=== PATIENT | male | born 2000 | race Caucasian/White ===

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

== ENCOUNTER 2022-01-20 21:15 | Emergency (ER) | payer OTHER ==
--- OUTSIDE RECORDS SUMMARY | 2022-01-20 21:18 | XMS REPORT | Continuity of Care Document ---
:[address] [facility] t Address 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 Medications Ordered Filled Start Stop Current Ordering Indication Dosage Frequency Signature Comments Components Source Medication Medication Date Date Medication? Clinician (SIG) Name Name Nystatin Nystatin 2019- Yes Triny Bedias 1 Common 01-03 applicatio Spirit 00:00: n to - [facility] 00 affected [facility] Tretinoin Tretinoin Yes Triny Bedias 1 Common 12-26 applicatio [facility] 00:00: n to - [facility] 00 affected [facility] evening to Center face Clindamycin Clindamycin 2019- No Triny Roma 1 Common Phos-Benzoy Phos-Benzoy 12-25 applicatio Spirit l Perox l Perox 00:00: 00:00 n to - [facility] 00 :00 affected [facility] Procedures This patient has no known procedures. Encounters Start End Encounter Admission Attending Care Care Encounter Source Date/Time Date/Time Type Type Clinicians Facility Department ID 2019-02-26 2019-02-26 Outpatient Fercho Bonilla [id number] Common 08:58:00 08:58:00 [facility] [address] Road [facility] 2019-02-14 2019-02-14 Outpatient Fercho Bonilla [id number] Common 12:24:00 12:24:[address] [facility] 2019-02-14 2019-02-14 [facility] [id number] Common 11:55:00 11:55:[address] [facility] 2019-01-05 2019-01-05 [facility] [id number] Common 15:38:00 15:38:[address] [facility] 2019-01-04 2019-01-04 [facility] [id number] Common 12:58:00 12:58:[address] [facility] [address] [facility] 2019-01-03 2019-01-03 [facility] [id number] Common 14:00:00 14:00:[address] [facility] 2018-12-26 2018-12-26 [facility] [id number] Common 13:46:00 13:46:00 t [facility] [address] [facility] 2018-12-25 2018-12-25 [facility] [id number] Common 13:20:00 13:20:[address] [facility] Results This patient has no known results.
[2022-01-20] MEDS ORDERED: CEFAZOLIN SODIUM 1 GM/VIAL ONE (21:53)
[2022-01-20] MEDS ORDERED: AMOX/K CLAV 875 MG TAB ONE (21:54)
[2022-01-20] MEDS ORDERED: NA CHLORIDE 0.9% 500 ML ONE (21:54)
[2022-01-20] MEDS ORDERED: KETOROLAC 30 MG/ML INJ ONE (21:54)
[2022-01-20] MEDS ORDERED: NA CHLORIDE 0.9% 50 ML ONE (21:56)
[2022-01-20] MEDS ORDERED: TETANUS & DIPHTHERIA TOX,ADULT 0.5 ML VIAL ONE (21:57)
[2022-01-20] MEDS ORDERED: LIDOCAINE 1% W/EPI 1:100,000 MDV 50 ML VIAL ONE (22:26)
--- NOTE | 2022-01-20 22:34 | RAD REPORT ---
EXAM DESCRIPTION: RAD - Forearm Right - 01/20/2022 10:01 pm CLINICAL HISTORY: PAIN, dog bite COMPARISON: <Comparisons> FINDINGS: No fracture is identified. There is no dislocation or periosteal reaction noted. Soft tissue wound is present distal forearm and wrist area. No foreign body in the soft tissues. IMPRESSION: Soft tissue wound from dog bite. No foreign body. No bone abnormality.
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
--- NOTE | 2022-01-20 22:47 | EDPHYS ---
Physician Documentation [facility] Name: Damion Rod II Age: 21 yrs Sex: Male : 2000 Arrival Date: 01/20/2022 Time: 21:25 Bed 12 Private MD: ED Physician Roberto Trujillo HPI: 01/20 21:33 This 21 yrs old Male presents to ER via EMS with complaints of dog bite right maida wrist. 21:33 The patient or guardian reports a bite, by a dog. The complaints affect the right wrist maida diffusely. Context: The problem was sustained at home. Onset: The symptoms/episode began/occurred just prior to arrival. Modifying factors: The symptoms are alleviated by nothing, elevation, holding still, the symptoms are aggravated by movement, dependent position. Associated signs and symptoms: The patient has no apparent associated signs or symptoms. The patient has not experienced similar symptoms in the past. Historical: - Allergies: 21:28 No Known Allergies; eh3 - Home Meds: 21:28 None [Active]; eh3 - PMHx: 21:28 right bundle branch block; eh3 - PSHx: 21:28 Unable to Obtain; eh3 - Immunization history:: Adult Immunizations unknown. - Social history:: Smoking status: Patient denies any tobacco usage or history of. Patient uses street drugs, marijuana, Patient/guardian denies using alcohol. - Family history:: not pertinent. ROS: 21:33 Constitutional: Negative for fever, chills, and weight loss, Eyes: Negative for injury, maida pain, redness, and discharge, ENT: Negative for injury, pain, and discharge, Neck: Negative for injury, pain, and swelling, Cardiovascular: Negative for chest pain, palpitations, and edema, Respiratory: Negative for shortness of breath, cough, wheezing, and pleuritic chest pain, Abdomen/GI: Negative for abdominal pain, nausea, vomiting, diarrhea, and constipation, Back: Negative for injury and pain, : Negative for injury, bleeding, discharge, and swelling, Skin: Negative for injury, rash, and discoloration, Neuro: Negative for headache, weakness, numbness, tingling, and seizure, Psych: Negative for depression, anxiety, suicide ideation, homicidal ideation, and hallucinations, Allergy/Immunology: Negative for hives, rash, and allergies, Endocrine: Negative for neck swelling, polydipsia, polyuria, polyphagia, and marked weight changes, Hematologic/Lymphatic: Negative for swollen nodes, abnormal bleeding, and unusual bruising. 21:33 MS/extremity: Positive for decreased range of motion, laceration, pain, swelling, tenderness. 21:33 Skin: Positive for erythema, hematoma. Exam: 21:33 Constitutional: This is a well developed, well nourished patient who is awake, alert, maida and in no acute distress. Head/Face: Normocephalic, atraumatic. Eyes: Pupils equal round and reactive to light, extra-ocular motions intact. Lids and lashes normal. Conjunctiva and sclera are non-icteric and not injected. Cornea within normal limits. Periorbital areas with no swelling, redness, or edema. ENT: Nares patent. No nasal discharge, no septal abnormalities noted. Tympanic membranes are normal and external auditory canals are clear. Oropharynx with no redness, swelling, or masses, exudates, or evidence of obstruction, uvula midline. Mucous membranes moist. Neck: Trachea midline, no thyromegaly or masses palpated, and no cervical lymphadenopathy. Supple, full range of motion without nuchal rigidity, or vertebral point tenderness. No Meningismus. Chest/axilla: Normal chest wall appearance and motion. Nontender with no deformity. No lesions are appreciated. Cardiovascular: Regular rate and rhythm with a normal S1 and S2. No gallops, murmurs, or rubs. Normal PMI, no JVD. No pulse deficits. Respiratory: Lungs have equal breath sounds bilaterally, clear to auscultation and percussion. No rales, rhonchi or wheezes noted. No increased work of breathing, no retractions or nasal flaring. Abdomen/GI: Soft, non-tender, with normal bowel sounds. No distension or tympany. No guarding or rebound. No evidence of tenderness throughout. Back: No spinal tenderness. No costovertebral tenderness. Full range of motion. Male : Normal genitalia with no discharge or lesions. Skin: Warm, dry with normal turgor. Normal color with no rashes, no lesions, and no evidence of cellulitis. Neuro: Awake and alert, GCS 15, oriented to person, place, time, and situation. Cranial nerves II-XII grossly intact. Motor strength 5/5 in all extremities. Sensory grossly intact. Cerebellar exam normal. Normal gait. Psych: Awake, alert, with orientation to person, place and time. Behavior, mood, and affect are within normal limits. 21:33 Musculoskeletal/extremity: ROM: limited active range of motion due to pain, limited passive range of motion due to pain, in the right wrist, palmar aspect of right forearm and right forearm, Circulation is intact in all extremities. Sensation intact. Severe pain noted. Compartment Syndrome exam of affected extremity: is normal. DVT Exam: negative Homans' sign noted on exam, no appreciated bluish discoloration, no erythema, no increased warmth, pain, swelling, tenderness. Vital Signs: 21:26 BP 124 / 87; Pulse 82; Resp 18; Pulse Ox 100% on R/A; Weight 70.31 kg; Height 6 ft. 0 eh3 in. (182.88 cm); Pain 8/10; 22:32 BP 124 / 87; Pulse 82; Resp 18; Pulse Ox 100% on R/A; Pain 5/10; eh3 23:04 BP 121 / 82; Pulse 84; Resp 18; Pulse Ox 100% on R/A; Pain 5/10; ld1 21:26 Body Mass Index 21.02 (70.31 kg, 182.88 cm) eh3 Laceration: 21:37 Wound Repair of 5.5cm ( 2.2in ) subcutaneous laceration to right wrist and dorsal maida aspect of right forearm. Irregularly shaped.. Skin/tissue flap noted.. Distal neuro/vascular/tendon intact. Anesthesia: Local anesthetic administered with 10 mls of 1% lidocaine w/ Epi. Wound prep: Simple cleansing by me, Copious irrigation. Skin closed with 6 5-0 Prolene using interrupted sutures and sterile technique. Dressed with Neosporin, pressure dressing, non-adherent dressing. Patient tolerated well. MDM: 21:27 Patient medically screened. maida 21:36 Differential diagnosis: open fracture, contusion, tendonitis. Data reviewed: vital maida signs, nurses notes, radiologic studies, plain films. Data interpreted: media monitor: rate is 82 beats/min, rhythm is regular, Pulse oximetry: on room air is 100 %. Test interpretation: by ED physician or midlevel provider: plain radiologic studies. Counseling: I had a detailed discussion with the patient and/or guardian regarding: the historical points, exam findings, and any diagnostic results supporting the discharge/admit diagnosis, radiology results, the need for outpatient follow up, for definitive care, a general surgeon, a hand specialist. 01/20 21:32 Order name: Forearm Right XRAY; Complete Time: 22:39 [facility] 01/20 21:32 Order name: Dressing - Wound; Complete Time: 22:32 [facility] 01/20 21:32 Order name: Gloves, Sterile; Complete Time: 22:32 [facility] 01/20 21:32 Order name: Prolene, Sutures; Complete Time: 22:32 [facility] 01/20 21:32 Order name: Setup Suture Tray; Complete Time: 22:32 [facility] 01/20 22:46 Order name: Sling; Complete Time: 23:24 [facility] Administered Medications: 22:17 Drug: Tetanus Toxoid,Adsorbed 0.5 ml {[employer] Technician: [employer]. Exp: 10/17/2023. Lot eh3 #: [id number]. } Route: IM; Site: left deltoid; 22:31 Follow up: Response: No adverse reaction 3 22:17 Drug: NS 0.9% 500 ml Route: IV; Rate: bolus; Site: left antecubital; 3 23:15 Follow up: Response: No adverse reaction; IV Status: Completed infusion; IV Intake: ld1 500ml 22:19 Drug: Ancef (cefazolin) 1 grams Route: IVPB; Site: left antecubital; 3 22:31 Follow up: Response: No adverse reaction; IV Status: Completed infusion; IV Intake: [id number] 22:19 Drug: Augmentin (Amoxicillin-Clavulanate) 875 mg Route: PO; 3 22:31 Follow up: Response: No adverse reaction 3 22:19 Drug: Ketorolac 30 mg Route: IVP; Site: left antecubital; 3 22:31 Follow up: Response: Marked relief of symptoms 3 22:50 Drug: Lidocaine-Epinephrine -1%: (1:100,000) 10 ml {Note: administered by Roberto Trujillo MD.} Volume: 20 ml; Route: Infiltration; 23:15 Follow up: Response: No adverse reaction ld1 23:03 Drug: morphine 2 mg Route: IVP; Infused Over: 4 mins; Site: left antecubital; ld1 23:15 Follow up: Response: No adverse reaction; Marked relief of symptoms ld1 23:03 Drug: Zofran (Ondansetron) 4 mg Route: IVP; Site: left antecubital; ld1 23:15 Follow up: Response: No adverse reaction ld1 Disposition Summary: 01/20/22 22:46 Discharge Ordered Location: Home maida Problem: new maida Symptoms: have improved maida Condition: Stable maida Diagnosis - Bitten by dog maida - Laceration without foreign body of right wrist - 4 lacerations maida Followup: maida - With: Private Physician - When: 2 - 3 days - Reason: Recheck today's complaints, Continuance of care, Re-evaluation by your physician Followup: maida - With: - When: 2 - 3 days - Reason: Recheck today's complaints, Re-evaluation by your physician Followup: maida - With: - When: 2 - 3 days - Reason: Recheck today's complaints, Continuance of care, Re-evaluation by your physician Discharge Instructions: - Discharge Summary Sheet maiad - Animal Bite, Adult, [id number] maida - Laceration Care, Adult maida - Laceration Care, Adult, [id number] maida - Animal Bite, Adult maida Forms: - Medication Reconciliation Form [facility] - Thank You Letter [facility] - Antibiotic Education [facility] - Prescription Opioid Use [facility] Prescriptions: - Centany 2 % Topical ointment - apply 1 application by TOPICAL route 3 times per day; 30 gram; Refills: 0, [facility] Product Selection Permitted - Augmentin 875-125 mg Oral Tablet - take 1 tablet by ORAL route every 12 hours for 10 days; 20 tablet; Refills: 0, [facility] Product Selection Permitted - Tylenol-Codeine #3 300 mg-30 mg Oral - take 2 tablet by ORAL route every 6 hours; 15 tablet; Refills: 0, Product [facility] Selection Permitted Signatures: Dispatcher [employer] Roberto Parrish MD MD cha Dibbern, Lauren RN RN ld1 Thi Albarran RN RN eh3
[2022-01-20] MEDS ORDERED: ONDANSETRON 4 MG/2 ML VIAL ONE (23:00)
[2022-01-20] MEDS ORDERED: MORPHINE 4 MG/ML SYR ONE (23:00)
[2022-01-20] MEDS ORDERED: MUPIROCIN 2% OINT 22GM TUBE TOP ONE (23:25)
[2022-01-21 02:22] VITALS: O2SAT 100
[2022-01-21 02:34] VITALS: BP 121/82
== END 2022-01-20 23:38 | disposition home or self-care (01) ==
LOC: ER 21:15
DX: S61.511A Laceration without foreign body of right wrist, initial encounter (principal); W54.0XXA Bitten by dog, initial encounter; Z23 Encounter for immunization
CPT/HCPCS: 73090; 90714; 12002; J7040; J2405; J0690; 90471; 96361; 96374; 96375; 99284

== ENCOUNTER 2024-08-26 23:18 | Emergency (ER) | payer OTHER ==
[2024-08-26] MEDS ORDERED: BUPIVACAINE 0.5% PF 10 ML VIAL ONE (23:53)
[2024-08-26] MEDS ORDERED: IBUPROFEN 200 MG TAB PO ONE (23:54)
[2024-08-26] MEDS ORDERED: ACETAMINOPHEN 500 MG TAB ONE (23:54)
[2024-08-26] MEDS ORDERED: LIDOCAINE 2% MPF 5 ML VIAL ONE (23:55)
[2024-08-26] MEDS ORDERED: IBUPROFEN 400 MG TAB ONE (23:55)
--- NOTE | 2024-08-27 00:45 | ER ---
Nurse's Notes [facility] Name: Damion Rod II Age: 23 yrs Sex: Male : 2000 Arrival Date: 08/26/2024 Time: 23:18 Bed 5 Private MD: Diagnosis: Nail disorder, unspecified-ingrown left great toe;Cellulitis of left toe Presentation: 08/26 23:53 Chief complaint: Patient states: ingrown toenail to left great toe X1 month. lg3 Coronavirus screen: Client denies travel out of the [place] in the last 14 days. At this time, the client does not indicate any symptoms associated with coronavirus-19. Ebola Screen: No symptoms or risks identified at this time. Initial Sepsis Screen: Does the patient meet any 2 criteria? No. Patient's initial sepsis screen is negative. Does the patient have a suspected source of infection? No. Patient's initial sepsis screen is negative. Risk Assessment: Do you want to hurt yourself or someone else? Patient reports no desire to harm self or others. Onset of symptoms is unknown. 23:53 Method Of Arrival: Ambulatory lg3 23:53 Acuity: ABHI 4 lg3 Triage Assessment: 23:54 General: Appears in no apparent distress. comfortable, Behavior is calm, cooperative. lg3 Pain: Complains of pain in Left first toenail Pain does not radiate. EENT: No deficits noted. No signs and/or symptoms were reported regarding the EENT system. Neuro: No deficits noted. Wong Agitation-Sedation Scale (RASS): 0 - Alert and Calm Level of Consciousness is awake, alert, obeys commands, Oriented to person, place, time, situation. Cardiovascular: No deficits noted. Denies chest pain, shortness of breath, Capillary refill < 3 seconds Clubbing of nail beds is absent JVD is absent Patient's skin is warm and dry. Respiratory: No deficits noted. Airway is patent Respiratory effort is even, unlabored, Respiratory pattern is regular, symmetrical. GI: No deficits noted. No signs and/or symptoms were reported involving the gastrointestinal system. : No signs and/or symptoms were reported regarding the genitourinary system. Derm: Skin is intact, is healthy with good turgor, Skin is dry, Skin is normal, Skin temperature is warm Wound noted Left first toenail. Musculoskeletal: No deficits noted. No signs and/or symptoms reported regarding the musculoskeletal system. Circulation, motion, and sensation intact. Range of motion: intact in all extremities. Historical: - Allergies: 23:54 No Known Allergies; lg3 - Home Meds: 23:54 None [Active]; lg3 - PMHx: 23:54 right bundle branch block; lg3 - PSHx: 23:54 None; lg3 - Immunization history:: Adult Immunizations up to date. - Infectious Disease History:: Denies. - Social history:: Smoking status: Patient denies any tobacco usage or history of. Patient/guardian denies using alcohol, street drugs. Screenin:56 [facility] ED Fall Risk Assessment (Adult) History of falling in the last 3 months, lg3 including since admission No falls in past 3 months (0 pts) Confusion or Disorientation No (0 pts) Intoxicated or Sedated No (0 pts) Impaired Gait No (0 pts) Mobility Assist Device Used No (0 pt) Altered Elimination No (0 pt) Score/Fall Risk Level 0 - 2 = Low Risk Oriented to surroundings, Maintained a safe environment, Educated pt \T\ family on fall prevention, incl call for assistance when getting out of bed, Assessed \T\ reinforced patient's understanding of fall precautions. Abuse screen: Denies threats or abuse. Denies injuries from another. Nutritional screening: No deficits noted. Tuberculosis screening: No symptoms or risk factors identified. Assessment: 08/27 00:20 General: Appears in no apparent distress. Behavior is calm, cooperative, appropriate dd2 for age. Pain: Complains of pain in Left first toenail Pain does not radiate. Pain currently is 4 out of 10 on a pain scale. Neuro: No deficits noted. Wong Agitation-Sedation Scale (RASS): 0 - Alert and Calm Level of Consciousness is awake, alert, obeys commands, Oriented to person, place, time, situation, Appropriate for age. Cardiovascular: No deficits noted. Respiratory: No deficits noted. Airway is patent Respiratory effort is even, unlabored, Respiratory pattern is regular, symmetrical. GI: No deficits noted. No signs and/or symptoms were reported involving the gastrointestinal system. : No deficits noted. No signs and/or symptoms were reported regarding the genitourinary system. EENT: No deficits noted. No signs and/or symptoms were reported regarding the EENT system. Derm: Wound noted Left first toenail Wound is EDEMA, REDNESS WITH SCABBING NOTED Reports pain that is 4 out of 10 on a pain scale. Musculoskeletal: No deficits noted. No signs and/or symptoms reported regarding the musculoskeletal system. Circulation, motion, and sensation intact. Range of motion: intact in all extremities. Vital Signs: 08/26 23:53 BP 115 / 70; Pulse 64; Resp 17 S; Temp 97.7(O); Pulse Ox 99% on R/A; Weight 86.18 kg lg3 (R); Height 6 ft. 0 in. (R); Pain 5/10; 08/27 01:02 BP 116 / 77; Pulse 67; Resp 16; Temp 97.9; Pulse Ox 99% on R/A; Pain 0/10; dd2 08/26 23:53 Body Mass Index 25.77 (86.18 kg, 182.88 cm) lg3 08/26 23:53 Pain Scale: Adult lg3 08/27 01:02 Pain Scale: Adult dd2 [place] Coma Score: 00:20 Eye Response: spontaneous(4). Motor Response: obeys commands(6). Verbal Response: dd2 oriented(5). Total: 15. ED Course: 08/26 23:20 Patient arrived in ED. [id number] 23:28 Roberto Burgess PA is PHCP. cp 23:28 Lenard Amezcua MD is Attending Physician. cp 23:54 Triage completed. lg3 23:54 Arm band placed on right wrist. lg3 23:56 Patient has correct armband on for positive identification. Bed in low position. Call lg3 light in reach. Side rails up X 1. Client placed on continuous cardiac and pulse oximetry monitoring. NIBP monitoring applied. Door closed. Noise minimized. Warm blanket given. Pillow given. 08/27 00:20 YARITZA BASILIO, RN is Primary Nurse. dd2 00:20 Provided Education on: MEDICATION EDUCATION. dd2 00:20 No provider procedures requiring assistance completed. Patient did not have IV access dd2 during this emergency room visit. Patient maintains SpO2 saturation greater than 95% on room air. 00:41 Steve Fine DPM is Referral Physician. cp Administered Medications: 08/26 23:58 Drug: Clindamycin PO 600 mg PO once Route: PO; dd2 08/27 00:28 Follow up: Response: No adverse reaction dd2 08/26 23:59 Drug: Ibuprofen PO 800 mg PO once Route: PO; dd2 08/27 00:29 Follow up: Response: No adverse reaction dd2 08/26 23:59 Drug: Acetaminophen PO 1000 mg PO once Route: PO; dd2 08/27 00:29 Follow up: Response: No adverse reaction dd2 00:20 Drug: Lidocaine Infiltration (2 %) 5 ml 5 ml Infiltration once; to bedside Volume: 5 dd2 ml; Route: Infiltration; 00:50 Follow up: Response: No adverse reaction dd2 00:20 Drug: Bupivacaine Infiltration (0.5 %) 10 ml 10 ml Infiltration once Volume: 10 ml; dd2 Route: Infiltration; Site: affected area; 00:50 Follow up: Response: No adverse reaction dd2 Medication: 00:20 VIS not applicable for this client. dd2 Outcome: 00:45 Discharge ordered by MD. susan 01:03 Discharged to home ambulatory, dd2 01:03 Condition: stable 01:03 Discharge instructions given to patient, Instructed on discharge instructions, follow up and referral plans. medication usage, wound care, Demonstrated understanding of instructions, follow-up care, medications, wound care, Prescriptions given X 2, 01:03 Patient left the ED. dd2 Signatures: Roberto Burgess PA PA cp Able, Lacie, RN RN lg3 Donna [id number] YARITZA BASILIO RN RN dd2
--- NOTE | 2024-08-27 00:45 | EDPHYS ---
Physician Documentation [facility] Name: Damion Rod II Age: 23 yrs Sex: Male : 2000 Arrival Date: 08/26/2024 Time: 23:18 Bed 5 Private MD: ED Physician Lenard Amezcua HPI: 08/26 23:45 This 23 yrs old Male presents to ER via Unassigned with complaints of TOE/TOE cp NAIL PAIN. 23:45 The patient presents with pain, that is acute. The complaints affect the left great toe.cp 23:45 Context: Mechanism of Injury: none the patient can fully bear weight, the patient is cp able to ambulate, with mild difficulty. Onset: The symptoms/episode began/occurred gradually. Associated signs and symptoms: The patient has no apparent associated signs or symptoms. Historical: - Allergies: 23:54 No Known Allergies; lg3 - Home Meds: 23:54 None [Active]; lg3 - PMHx: 23:54 right bundle branch block; lg3 - PSHx: 23:54 None; lg3 - Immunization history:: Adult Immunizations up to date. - Infectious Disease History:: Denies. - Social history:: Smoking status: Patient denies any tobacco usage or history of. Patient/guardian denies using alcohol, street drugs. ROS: 23:50 MS/extremity: Positive for pain, swelling, tenderness, of the left first toe, Negative cp for injury or acute deformity, decreased range of motion, paresthesias, 23:50 Constitutional: Negative for body aches, chills, fever, cp Exam: 23:55 Constitutional: The patient appears in no acute distress, alert, awake, non-toxic, well cp developed, well nourished, uncomfortable, 23:55 Head/Face: Normocephalic, atraumatic. cp 23:55 Chest/axilla: Inspection: normal, 23:55 Cardiovascular: Rate: normal, Pulses: Pulses are 2+ in left dorsalis pedis artery. 23:55 Respiratory: the patient does not display signs of respiratory distress, Respirations: normal, no use of accessory muscles, no retractions, 23:55 Back: pain, is absent, ROM is normal, 23:55 Musculoskeletal/extremity: Extremities: noted in the left great toe: pain, swelling, tenderness medial side of left great toe, mild swelling and erythema of distal phalanx, Perfusion: the extremity is normally perfused throughout, the left foot Sensation intact. Vital Signs: 23:53 BP 115 / 70; Pulse 64; Resp 17 S; Temp 97.7(O); Pulse Ox 99% on R/A; Weight 86.18 kg lg3 (R); Height 6 ft. 0 in. (R); Pain 5/10; 08/27 01:02 BP 116 / 77; Pulse 67; Resp 16; Temp 97.9; Pulse Ox 99% on R/A; Pain 0/10; dd2 08/26 23:53 Body Mass Index 25.77 (86.18 kg, 182.88 cm) lg3 08/26 23:53 Pain Scale: Adult lg3 08/27 01:02 Pain Scale: Adult dd2 Ravi Coma Score: 00:20 Eye Response: spontaneous(4). Motor Response: obeys commands(6). Verbal Response: dd2 oriented(5). Total: 15. MDM: 08/26 23:43 Medical Screening Exam initiated cp 08/27 00:45 Data reviewed: vital signs, nurses notes, and as a result, I will discharge patient. cp 00:45 Differential diagnosis: cellulitis, abscess. I considered the following discharge cp prescriptions or medication management in the emergency department Medications were administered in the Emergency Department. See MAR. Counseling: I had a detailed discussion with the patient and/or guardian regarding the historical points, exam findings, and any diagnostic results supporting the discharge/admit diagnosis, the need for outpatient follow up, a global lead, to return to the emergency department if symptoms worsen or persist or if there are any questions or concerns that arise at home. Response to treatment: the patient's symptoms have mildly improved after treatment, and as a result, I will discharge patient. Administered Medications: 08/26 23:58 Drug: Clindamycin PO 600 mg PO once Route: PO; dd2 08/27 00:28 Follow up: Response: No adverse reaction dd2 08/26 23:59 Drug: Ibuprofen PO 800 mg PO once Route: PO; dd2 08/27 00:29 Follow up: Response: No adverse reaction dd2 08/26 23:59 Drug: Acetaminophen PO 1000 mg PO once Route: PO; dd2 08/27 00:29 Follow up: Response: No adverse reaction dd2 00:20 Drug: Lidocaine Infiltration (2 %) 5 ml 5 ml Infiltration once; to bedside Volume: 5 dd2 ml; Route: Infiltration; 00:50 Follow up: Response: No adverse reaction dd2 00:20 Drug: Bupivacaine Infiltration (0.5 %) 10 ml 10 ml Infiltration once Volume: 10 ml; dd2 Route: Infiltration; Site: affected area; 00:50 Follow up: Response: No adverse reaction dd2 Disposition: 08/28 00:44 Chart complete. cp Disposition Summary: 08/27/24 00:45 Discharge Ordered Notes: Location: Home cp Problem: new cp Symptoms: have improved cp Condition: Stable cp Diagnosis - Nail disorder, unspecified - ingrown left great toe cp - Cellulitis of left toe cp Followup: cp - With: Steve Fine DPM - When: 2 - 3 days - Reason: Worsening of condition Discharge Instructions: - Discharge Summary Sheet cp - Cellulitis, Adult cp - Ingrown Toenail cp Forms: - Medication Reconciliation Form cp - Antibiotic Education cp - Prescription Opioid Use cp - Patient Portal Instructions cp - Leadership Thank You Letter cp Prescriptions: - Clindamycin HCl 300 mg Oral Capsule - take 1 capsule ORAL route every 6 hours for 10 days; 40 capsule; Refills: 0, cp Product Selection Permitted - Ibuprofen 800 mg Oral Tablet - take 1 tablet ORAL route every 8 hours As needed take with food; 30 tablet; cp Refills: 0, Product Selection Permitted Signatures: Roberto Burgess PA PA cp Able, Lacie, RN RN lg3 YARITZA BASILIO RN RN dd2
[2024-08-27 01:08] VITALS: O2SAT 99
[2024-08-27 01:09] VITALS: BP 116/77; TEMP 97.9
== END 2024-08-27 01:03 | disposition home or self-care (01) ==
LOC: ER 23:18
DX: L60.0 Ingrowing nail (principal); L03.032 Cellulitis of left toe
CPT/HCPCS: 99284; J2003